=== PATIENT | female | born 1935 | race African-American/Black ===

== ENCOUNTER 2018-02-07 12:54 | Emergency (ER) | payer MEDICARE ==
--- NOTE | 2018-02-07 15:41 | RAD ---
AP VIEW OF THE CHEST: INDICATION: History of cough. COMPARISON: Prior exam dated 09/25/13 and 08/01/15. FINDINGS: COPD change and mild cardiomegaly is stable. Vascular calcifications of the aortic arch are similar. No pleural effusion, airspace consolidation, or pneumothorax is grossly evident. No acute osseous abnormality is noted. IMPRESSION: No acute abnormality. POS: [facility]
[2018-02-07] MEDS ORDERED: Ciprofloxacin HCL/Dexameth Otic Drops 7.5 ml Bottle ONE ×2 (16:04→16:05)
== END 2018-02-07 16:19 | disposition home or self-care (01) ==
LOC: ERS 12:54
DX: J06.9 Acute upper respiratory infection, unspecified (principal); H60.90 Unspecified otitis externa, unspecified ear; E03.9 Hypothyroidism, unspecified; E78.5 Hyperlipidemia, unspecified; I10 Essential (primary) hypertension; Z86.711 Personal history of pulmonary embolism
CPT/HCPCS: 71045

== ENCOUNTER 2018-04-11 10:01 | Emergency (ER) | payer MEDICARE ==
[2018-04-11] MEDS ORDERED: Acetaminophen 500 MG TAB ONE (10:24)
--- NOTE | 2018-04-11 12:15 | RAD ---
RIGHT HIP 2 VIEWS: Date: 04/01/18 PROVIDED CLINICAL HISTORY: Hip pain. FINDINGS: Comparison with 05/05/16. No evidence for fracture or other acute osseous abnormality. Concentric right hip joint space loss wi th periarticular osteophyte formation. Acetabular overcoverage, which may predispose to femoral-aceta bular impingement. Calcifications are noted overlying the pelvis that may reflect a calcified uterine fibroid. IMPRESSION: 1. No evidence for an acute osseous abnormality. 2. Degenerative changes involving the right hip as above. POS: [facility]
== END 2018-04-11 11:26 | disposition home or self-care (01) ==
LOC: ERS 10:01
DX: M25.551 Pain in right hip (principal); E78.5 Hyperlipidemia, unspecified; I10 Essential (primary) hypertension; E03.9 Hypothyroidism, unspecified; Z79.01 Long term (current) use of anticoagulants; Z79.899 Other long term (current) drug therapy

== ENCOUNTER 2018-10-09 14:49 | Outpatient (CLI) | payer MEDICARE | END 2018-10-09 14:50 | disposition home or self-care (01) | LOC: BICMAMMO 14:49 | PROVIDERS: ATTEND Internal Medicine Medical Oncology | DX: Z08 Encounter for follow-up examination after completed treatment for malignant neoplasm (principal); Z85.3 Personal history of malignant neoplasm of breast | CPT/HCPCS: 77066; G0279 ==

== ENCOUNTER → 2018-11-05 | Day surgery (SDC) | payer MEDICARE ==
--- NOTE | 2018-11-05 10:22 | MMO ---
STEREOTACTIC GUIDED BIOPSY RIGHT BREAST MICROCALCIFICATIONS SURGICAL SPECIMEN MAMMOGRAPHY RIGHT DIAGNOSTIC MAMMOGRAM POST BIOPSY: HISTORY: Abnormal mammogram. Microcalcifications. Prior breast cancer. FINDINGS: After explaining the procedure and answering all questions, the microcalcification cluster at the ret roareolar aspect of the right breast was visualized. Sterile technique, buffered local anesthesia, s tereotactic guidance, and a superior approach were used to carefully advance a 10-gauge vacuum-assist ed needle to the microcalcifications. Position was confirmed with stereotactic imaging. A total of eight 10-gauge vacuum-assisted specimens were obtained without difficulty. Surgical specimen mammography shows microcalcifications in most of the samples. Localization clip wa s placed in the biopsy bed under stereotactic guidance. Position confirmed. Needle removed. The pa tient tolerated the procedure well and was eventually dismissed in good condition. Postprocedure mammographic images show heterogeneously dense fibroglandular tissue. The cluster of m icrocalcifications at the retroareolar aspect of the right breast has been removed. Localization cli p in good position in the biopsy bed. IMPRESSION: Technically successful stereotactic-guided biopsy right breast microcalcifications. Pathology is cristiano hernández. POS: [facility]
== END ==
LOC: MAMMO 06:56
PROVIDERS: ATTEND Internal Medicine Medical Oncology
PROC: 0HBT3ZX Excision of Right Breast, Percutaneous Approach, Diagnostic (ICD-10-PCS; principal; 2018-11-05)
DX: D05.11 Intraductal carcinoma in situ of right breast (principal); Z79.01 Long term (current) use of anticoagulants; Z79.811 Long term (current) use of aromatase inhibitors; Z79.899 Other long term (current) drug therapy
CPT/HCPCS: 19081; 76098; 88305; 88341; 88342

== ENCOUNTER 2018-11-24 11:08 | Outpatient (CLI) | payer MEDICARE ==
[2018-11-24 13:44] LABS: Eosinophils 7 % (0-10); Hemoglobin 13.3 g/dL (12.0-16.0); Lymphocytes 32 % (21-51); MDiff Complete? YES; Mean Corpuscular Hemoglobin 26.1 pg (27.0-31.0); Mean Corpuscular Volume 84.3 fL (78.0-98.0); Mean Platelet Volume 9.5 fL (7.4-10.4); Monocytes 3 % (0-10); Neutrophil 57 % (42-75); Platelet Count 160 thou/uL (130-400); RBC Distribution Width 15.1 % (11.5-14.5); RBC Morphology Normal; Reactive Lymphocytes 1 % (0-10); Red Blood Cell (RBC) Count 5.11 mill/uL (4.20-5.40); White Blood Cell (WBC) Count 4.7 thou/uL (4.8-10.8)
== END 2018-11-24 11:09 | disposition home or self-care (01) ==
LOC: LABBT 11:08
PROVIDERS: ATTEND Surgery
DX: Z01.818 Encounter for other preprocedural examination (principal); D05.11 Intraductal carcinoma in situ of right breast
CPT/HCPCS: 85025; 93005; 93010

== ENCOUNTER 2018-12-04 06:57 | Day surgery (SDC) | payer MEDICARE ==
[2018-11-24 11:38] VITALS: BMI 22.2
[2018-12-04] MEDS ORDERED: Lidocaine 2% w/Epinephrine 1:200K 20 ML VIAL ONE (08:58)
[2018-12-04] MEDS ORDERED: Bupivacaine HCl 0.5%/Epinephrine 1:200,000/PF 30 ml Vial ONE ×2 (08:58→10:24)
[2018-12-04 08:59] LABS: ALT (SGPT) 9 U/L (8-55); AST (SGOT) 12 U/L (5-34); Albumin 3.8 g/dL (3.4-4.8); Alkaline Phosphatase 48 U/L (40-150); Anion Gap 11 mmol/L (10-20); BUN (Urea Nitrogen) 11 mg/dL (9.8-20.1); Bilirubin, Direct 0.2 mg/dL (0.1-0.3); Bilirubin, Total 0.4 mg/dL (0.2-1.2); Calc. Creatinine Clearance 52 mL/min (70-130); Calcium 9.2 mg/dL (7.8-10.44); Carbon Dioxide 26 mmol/L (23-31); Chloride 109 mmol/L (98-107); Estimated GFR-MDRD 79; Globulin 2.9 g/dL (2.4-3.5); Glucose 81 mg/dL (83-110); Potassium 3.6 mmol/L (3.5-5.1); Protein, Total 6.7 g/dL (6.0-8.3); Sodium 142 mmol/L (136-145)
[2018-12-04] MEDS ORDERED: Lidocaine 2% PF 5 ML VIAL ONE ×2 (09:00→10:24)
[2018-12-04] MEDS ORDERED: Midazolam HCl 2 mg/2 ml Vial ONE (10:39)
[2018-12-04] MEDS ORDERED: Fentanyl 100 MCG/2 ML VIAL ONE (10:39)
--- NOTE | 2018-12-04 12:40 | OP ---
DATE OF PROCEDURE: 12/04/2018 PREOPERATIVE DIAGNOSIS: Right breast cancer. PROCEDURE PERFORMED: Right needle localization lumpectomy, sentinel lymph node biopsy. INDICATIONS: An 83-year-old female, had abnormal mammogram, core biopsy was positive for infiltrating ductal carcinoma. FINDINGS: Successful removal of the tumor by specimen mammogram as a single sentinel node found. It was negative by touch prep. DESCRIPTION OF PROCEDURE: After informed consent was obtained, the patient underwent an injection of radionucleotide in the mammography suite as well as placement of a needle localization wire. She was placed under general endotracheal anesthesia. Her right breast was prepped and draped in usual fashion. Lymphazurin was infiltrated subareolar, 3 mL and massaged. Her right breast was prepped and draped in usual fashion. The Neoprobe was borrowed from another hospital, attempted a baseline, it was zero. We had the civil engineering look at it. They could not fix it, so we did not have a Neoprobe. I did a transverse axillary incision. Subcu divided sharply. I was able to locate blue dye and lymphatic, traced the lymphatic to a sentinel node. The sentinel node was excised. Efferent and afferent lymphatics ligated with 3-0 Vicryl ties. Palpation revealed no other nodes. On visualization, no other nodes. While waiting on the results of it, a curvilinear circumareolar incision was performed. Subcu divided sharply. The needle was brought out through the incision and a core breast tissue excised around the needle. This specimen was sent to mammography revealing it did contain the clip, wire, and tumor. Sent to pathology for further analysis. Hemostasis achieved. The wound was thoroughly irrigated. Subcu were approximated with interrupted 3-0 Vicryl. Skin closed with a running subcuticular 4-0 Rapide. By now, the lymph node came back negative. Hemostasis assured. Subcu reapproximated with interrupted 3-0 Vicryl and skin closed with a running subcuticular 4-0 Rapide. Steri-Strips applied. Sterile bandage applied. The patient tolerated the procedure well, transferred to Recovery in good condition. Sponge and needle count verified correct x2. Job ID: [id number]
--- NOTE | 2018-12-04 13:13 | MMO ---
MAMMOGRAPHIC GUIDED NEEDLE AND WIRE LOCALIZATION OF BIOPSY MARKER CLIP RIGHT BREAST RETROAREOLAR LUIS ENRIQUE ON: HISTORY: Prior stereotactic-guided breast biopsy demonstrated DCIS. The patient has a history of prior right- sided breast cancer. TECHNIQUE: After informed consent was obtained, the biopsy marker clip was localized in CC projection with grid localizer in place. An area was marked and then meticulously prepped and prepped in usual fashion. The skin and subcutaneous tissues were infiltrated with buffered 1% Lidocaine for local anesthesia. A 5 cm length [place] Localization needle and wire were placed. A CC projection followed by lateral me dial projection was performed. The needle was noted to traverse the region of the biopsy marker clip . The needle was slightly withdrawn and the localization wire was deployed. A final lateral medial projection left breast was performed. A dry sterile dressing was placed. The patient tolerated the procedure well and without immediate complication. IMPRESSION: Technically successful needle and wire localization of biopsy marker clip retroareolar region right b reast. The patient was transported to the operating room for lumpectomy. POS: [facility]
--- NOTE | 2018-12-04 14:19 | MMO ---
SURGICAL SPECIMEN RIGHT BREAST: 12/04/2018 HISTORY: Right breast cancer. Post needle and wire localization of biopsy marker clip, right breast. FINDINGS/IMPRESSION: A single specimen mammogram is submitted for interpretation. A [place] localization wire is seen immed iately adjacent to the biopsy marker clip within the specimen mammogram. These findings were discuss ed with Dr. Knapp in the operating room at the time the specimen was received. POS: [facility]
[2018-12-04] MEDS ORDERED: PROPOFOL 200 MG/20 ML VIAL ONE (14:45)
[2018-12-04] MEDS ORDERED: PHENYLEPHRINE-NS 100 MCG/ML 10 ML SYRINGE ONE (14:45)
[2018-12-04] MEDS ORDERED: Glycopyrrolate 0.2 MG/ML 5 ML SYRINGE ONE (14:45)
[2018-12-04] MEDS ORDERED: Ondansetron PF 4 MG/2 ML Vial ONE (14:45)
[2018-12-04] MEDS ORDERED: ePHEDrine 50 MG/ML VIAL ONE (14:45)
[2018-12-04] MEDS ORDERED: Dexamethasone 20 MG/5 ML VIAL ONE (14:45)
[2018-12-04] MEDS ORDERED: Lidocaine 1% PF 5 ML VIAL ONE (14:45)
== END 2018-12-04 14:19 | disposition home or self-care (01) ==
LOC: SDC 06:57
PROVIDERS: ATTEND Surgery
PROC: 0HBT0ZZ Excision of Right Breast, Open Approach (ICD-10-PCS; principal; 2018-12-04)
PROC: 07B50ZX Excision of Right Axillary Lymphatic, Open Approach, Diagnostic (ICD-10-PCS; 2018-12-04)
DX: D05.11 Intraductal carcinoma in situ of right breast (principal); E78.00 Pure hypercholesterolemia, unspecified; E07.9 Disorder of thyroid, unspecified; I10 Essential (primary) hypertension; Z86.711 Personal history of pulmonary embolism; Z79.01 Long term (current) use of anticoagulants; Z79.82 Long term (current) use of aspirin; Z79.899 Other long term (current) drug therapy
CPT/HCPCS: 19281; 19301; 38525; 38900; 76098; 80053; 80076; Q9968; 36415; 88307; 88333; 88341; 88342; J0670; J1100; J2001; J2250; J2405; J2704; J3010; J3490

== ENCOUNTER 2019-03-02 09:31 | Outpatient (CLI) | payer MEDICARE ==
--- NOTE | 2019-03-02 12:08 | BD ---
Exam: DEXA Bone Density History: Osteopenia. Comparison: 05-06-17 FINDINGS: Lumbar Spine: BMD (g/cm2) L1 0.978 T-Score: -0.1 L2 1.135 T-Score: 1.0 L3 1.110 T-Score: 0.2 L4 1.041 T-Score: -0.2 L1-L4 1.066 T-Score: 0.2 Within normal limits with no increased risk for fracture, little change from prior 05-06-17 study at [facility] the overall T-Score was 0.1 Femoral Neck: 0.698 T-Score: -1.4 Total Femur: 0.796 T-Score: -1.2 Evidence for osteopenia with increased risk for fracture. Bone mineral density has decreased somewhat from 05-06-17 at which time the T-Score was -1.0. TRAC SCORE: Major osteoporotic fracture of 17%. Hip fracture 3.9%. POS: [facility]
== END 2019-03-02 09:32 | disposition home or self-care (01) ==
LOC: BICMAMMO 09:31
PROVIDERS: ATTEND Internal Medicine Medical Oncology
DX: M85.859 Other specified disorders of bone density and structure, unspecified thigh (principal); C50.919 Malignant neoplasm of unspecified site of unspecified female breast
CPT/HCPCS: 77080

== ENCOUNTER 2019-12-22 08:50 | Outpatient (CLI) | payer MEDICARE ==
--- NOTE | 2019-12-22 09:58 | MMO ---
Bilateral MAMMO Bilat Diag DDI+SHERIN. CLINICAL HISTORY: Patient is 84 years old and is seen for diagnostic exam. The patient has no family history of breast cancer. The patient has a history of Excisional biopsy procedure revealed ductal carcinoma in situ. in the right breast. The patient has a history of right Stereotatic Biopsy in October, - dcis and right Lumpectomy in November, - malignant. VIEWS: The views performed were: bilateral craniocaudal with tomosynthesis; bilateral mediolateral oblique with tomosynthesis; and bilateral mediolateral with tomosynthesis. FILMS COMPARED: The present examination has been compared to prior imaging studies performed at [facility] on 02/13/2016, 05/06/2017 and 10/09/2018. This study has been interpreted with the assistance of computer-aided detection. MAMMOGRAM FINDINGS: There are scattered fibroglandular densities. Finding 1: There are fine pleomorphic calcifications with grouped or clustered distribution seen in the right breast at 10 o'clock. Finding 2: There are fine pleomorphic calcifications with grouped or clustered distribution seen in the sub-areolar region of the right breast. The larger group appears along the lateral aspect of the lumpectomy site and the subareolar group appears along the anterior aspect of the lumpectomy site. In the left breast, there are no suspicious masses, calcifications or areas of architectural distortion. IMPRESSION: FINDING 1: FINE PLEOMORPHIC CALCIFICATIONS IN THE RIGHT BREAST AT 10 O'CLOCK ARE SUSPICIOUS. A STEREOTACTIC BREAST BIOPSY IS RECOMMENDED. FINDING 2: FINE PLEOMORPHIC CALCIFICATIONS IN THE SUB-AREOLAR REGION OF THE RIGHT BREAST ARE SUSPICIOUS. A STEREOTACTIC BREAST BIOPSY IS RECOMMENDED. THE RESULTS OF THIS EXAM WERE SENT TO THE PATIENT. ACR BI-RADS Category 4 - Suspicious abnormality - biopsy should be considered MAMMOGRAPHY NOTE: 1. A negative mammogram report should not delay a biopsy if a dominant of clinically suspicious mass is present. 2. Approximately 10% to 15% of breast cancers are not detected by mammography. 3. Adenosis and dense breasts may obscure an underlying neoplasm. Reported by: ALEX INTERIANO MD Electonically Signed: [id number]
== END 2019-12-22 08:51 | disposition home or self-care (01) ==
LOC: BICMAMMO 08:50
PROVIDERS: ATTEND Surgery
DX: D05.10 Intraductal carcinoma in situ of unspecified breast (principal); R92.1 Mammographic calcification found on diagnostic imaging of breast
CPT/HCPCS: 77066; G0279

== ENCOUNTER → 2019-12-28 | Day surgery (SDC) | payer MEDICARE ==
--- NOTE | 2019-12-28 09:53 | MMO ---
PROCEDURE: Stereotactic guided biopsy of 2 separate clusters of microcalcifications right breast Right breast biopsy marker clip placement PROVIDED CLINICAL HISTORY: Patient has prior history of right breast cancer. Patient has 2 separate clustered areas of microcalc ifications in the right breast with largest clustered microcalcifications seen at the 10:00 position right breast and second cluster in the subareolar region of the right breast. COMPARISON: Mammograms on 12/22/2019 TECHNIQUE: After informed consent was obtained, the patient was placed on the stereotactic biopsy table in the p azar position. Largest cluster of microcalcifications 10:00 position right breast was localized utilizing stereotactic guidance. An area was prepped in usual fashion. Skin and subcutaneous tissues were infiltrated with buffered 1% lidocaine with epinephrine for local anesthesia. Small skin incision was made. A 10-gauge stereotactic guided biopsy needle was advanced by opposing images. Need le was then further advanced and final position was again confirmed with imaging. A total of six 10-gauge core needle biopsy specimens were obtained. Specimen mammogram demonstrated microcalcificati ons in the specimen. As result, a biopsy marker clip was placed. Hemostasis was achieved with direct pressure, and a dry sterile dressing was placed. Microcalcifications in the subareolar region right breast were then localized, and the area was metic ulously prepped in usual sterile fashion. Skin and subcutaneous tissues were infiltrated with buffered 1% lidocaine with epinephrine for local anesthesia. A small skin incision was made. Biopsy n eedle was advanced and positioning was confirmed with stereotactic imaging. The needle was then further advanced and again position was confirmed with additional images. A total of three 10-gauge c ore needle biopsy specimens were obtained. However, no significant tissue was obtained at this time. As a result, the needle was then slightly advanced and 3 additional specimens were obtained. Sp ecimen mammogram was performed demonstrating microcalcifications in the specimen. Biopsy marker clip was deployed at site of biopsy. Needle was removed, and hemostasis was achieved with direct pres sure. The patient tolerated the procedure well and without immediate complication. IMPRESSION: 1. Technically successful stereotactic guided biopsy of clustered microcalcifications at the 10:00 po sition right breast and in the subareolar region right breast. 2. Successful biopsy clip deployment at sites of biopsy in the right breast.
--- NOTE | 2019-12-28 09:56 | MMO ---
EXAM: MAMMO Surgial Specimen PROVIDED CLINICAL HISTORY: Biopsy of 2 separate clusters of microcalcifications in the right breast at the 10:00 position and in the retroareolar region. COMPARISON: Stereotactic guided breast biopsy images obtained on today's date as well as prior mammogram on 2019 FINDINGS\IMPRESSION: Specimen mammogram right breast from stereotactic biopsy 10:00 position demonstrates multiple microca lcifications within the provided specimen. Specimen mammogram from stereotactic biopsy retroareolar region right breast demonstrates a few scatt ered microcalcifications in the provided specimen
--- NOTE | 2019-12-28 10:04 | MMO ---
EXAM: MAMMO Unilat Diag DDI RT PROVIDED CLINICAL HISTORY: Post stereotactic guided breast biopsy and biopsy marker clip placements at 2 separate locations with in the right breast at the 10:00 position in the retroareolar region right breast. COMPARISON: Mammograms on 12/22/2019 FINDINGS: There is a biopsy marker clip now present in the retroareolar right breast, and the previously seen t iny grouping of microcalcifications is no longer visualized compatible with interval biopsy. A biopsy marker clip is also seen in the upper outer right breast with decrease in number of microcal cifications in the right breast, but a cluster of microcalcifications do persist. The biopsy marker clip is located inferior to the site of biopsy with clustered microcalcifications superior to the lev el of the biopsy marker clip. Biopsy marker clip is also located slightly anterior to region of microcalcifications. IMPRESSION: Post biopsy mammogram demonstrates 2 new biopsy marker clips in the right breast as above. Pathology is currently pending.
== END ==
LOC: MAMMO 07:01
PROVIDERS: ATTEND Surgery
PROC: 0H9T3ZX Drainage of Right Breast, Percutaneous Approach, Diagnostic (ICD-10-PCS; principal; 2019-12-28)
DX: D05.11 Intraductal carcinoma in situ of right breast (principal); N64.1 Fat necrosis of breast; R92.0 Mammographic microcalcification found on diagnostic imaging of breast; Z85.3 Personal history of malignant neoplasm of breast
CPT/HCPCS: 19081; 19082; 76098; 88305; 88341; 88342

== ENCOUNTER 2020-02-04 07:12 | Outpatient (CLI) | payer MEDICARE, OTHER ==
[2020-02-04 15:22] LABS: #Eosinphils 0.2 thou/uL (0.0-0.7); #Lymphocytes 1.6 thou/uL (1.20-3.40); #Monocytes 0.4 thou/uL (0.11-0.59); #Neutrophils 3.3 thou/uL (1.40-6.50); %Basophils 0.7 % (0.0-1.0); %Lymphocytes 28.9 % (21.0-51.0); %Monocytes 6.7 % (0.0-10.0); %Neutrophils 59.7 % (42.0-75.0); Hemoglobin 13.3 g/dL (12.0-16.0); Mean Corpuscular HGB CONC 31.4 g/dL (32.0-36.0); Mean Corpuscular Hemoglobin 26.5 pg (27.0-31.0); Mean Corpuscular Volume 84.2 fL (78.0-98.0); Mean Platelet Volume 8.4 fL (7.4-10.4); Platelet Count 221 thou/uL (130-400); RBC Distribution Width 14.8 % (11.5-14.5); Red Blood Cell (RBC) Count 5.04 mill/uL (4.20-5.40); White Blood Cell (WBC) Count 5.5 thou/uL (4.8-10.8)
[2020-02-04 15:45] LABS: ALT (SGPT) Less than 7 U/L (8-55); AST (SGOT) 17 U/L (5-34); Albumin 4.2 g/dL (3.4-4.8); Alkaline Phosphatase 77 U/L (40-110); Anion Gap 15 mmol/L (10-20); BUN (Urea Nitrogen) 10 mg/dL (9.8-20.1); Bilirubin, Total 0.4 mg/dL (0.2-1.2); Calc. Creatinine Clearance 0 mL/min (70-130); Calcium 9.6 mg/dL (7.8-10.44); Carbon Dioxide 23 mmol/L (23-31); Chloride 107 mmol/L (98-107); Estimated GFR-MDRD 66; Globulin 3.3 g/dL (2.4-3.5); Glucose 76 mg/dL (83-110); Potassium 3.8 mmol/L (3.5-5.1); Protein, Total 7.5 g/dL (6.0-8.3); Sodium 141 mmol/L (136-145)
[2020-02-05 17:09] LABS: SARS-CoV-2 MS2 Positive; SARS-CoV-2 N Gene Negative; SARS-CoV-2 S Gene Negative; SARS-CoV-2 orf1ab Negative
== END 2020-02-04 07:13 | disposition home or self-care (01) ==
LOC: LABBT 07:12
PROVIDERS: ATTEND Surgery
DX: Z01.818 Encounter for other preprocedural examination (principal); Z11.59 Encounter for screening for other viral diseases; D05.11 Intraductal carcinoma in situ of right breast
CPT/HCPCS: 80053; 85025; 93005; U0003; 87635; 93010

== ENCOUNTER 2020-02-04 14:00 | Inpatient (IN) | payer MEDICARE ==
[2020-02-04 14:12] VITALS: BMI 22.8
[2020-02-08] MEDS ORDERED: PROPOFOL 200 MG/20 ML VIAL ONE (11:27)
[2020-02-08] MEDS ORDERED: Dexamethasone 20 MG/5 ML VIAL ONE (11:27)
[2020-02-08] MEDS ORDERED: Lidocaine 1% PF 5 ML VIAL ONE (11:27)
[2020-02-08] MEDS ORDERED: Glycopyrrolate 0.2 MG/ML 5 ML SYRINGE ONE (11:27)
[2020-02-08] MEDS ORDERED: Rocuronium Bromide 10 MG/ML (10ML VIAL) ONE (11:27)
[2020-02-08] MEDS ORDERED: Ondansetron PF 4 MG/2 ML Vial ONE (11:27)
[2020-02-08] MEDS ORDERED: Fentanyl 100 MCG/2 ML VIAL ONE (11:29)
[2020-02-08] MEDS ORDERED: Lidocaine 1% w/Epinephrine 1:100K 20 ML VIAL ONE (11:36)
[2020-02-08] MEDS ORDERED: Bupivacaine PF 0.5% 30 ML VIAL ONE (11:36)
[2020-02-08] MEDS ORDERED: HYDROcodone/Acetaminophen 7.5/325 mg Tablet PO PRN ×2 (13:15)
[2020-02-08] MEDS ORDERED: Morphine 4 MG/ML VIAL SLOW IVP PRN (13:15)
[2020-02-08] MEDS ORDERED: Dextrose 50% Abboject 50 ML SYRINGE SLOW IVP PRN (13:15)
[2020-02-08] MEDS ORDERED: hydrALAZINE 20 MG/ML VIAL SLOW IVP PRN (13:15)
[2020-02-08] MEDS ORDERED: Ondansetron PF 4 MG/2 ML Vial IVP PRN (13:15)
[2020-02-08] MEDS ORDERED: Promethazine HCl 25 MG/ML VIAL IM PRN ×2 (13:15→13:36)
[2020-02-08] MEDS ORDERED: Morphine 2 MG/ML SYRINGE SLOW IVP PRN (13:15)
[2020-02-08] MEDS ORDERED: Dextrose 5% in Water 1,000 ML IV PRN (13:15)
[2020-02-08] MEDS ORDERED: PACU-Morphine 4MG/ML VIAL SLOW IVP PRN (13:36)
[2020-02-08] MEDS ORDERED: Promethazine HCl 25 MG/ML VIAL SLOW IVP PRN (13:36)
[2020-02-08] MEDS: D5 1/2 NS w/20 mEq KCL 1,000 ML IV SCH (16:53)
[2020-02-08] MEDS: Carvedilol 6.25 MG TAB PO SCH (16:53)
[2020-02-08] MEDS: Docusate 100 MG CAP PO SCH (19:57)
[2020-02-08] MEDS: Famotidine 20 MG TAB PO SCH (19:57)
[2020-02-09] MEDS: D5 1/2 NS w/20 mEq KCL 1,000 ML IV SCH (05:01)
[2020-02-09 05:37] LABS: #Monocytes 0.5 thou/uL (0.11-0.59); %Basophils 0.1 % (0.0-1.0); %Eosinophils 0.1 % (0.0-10.0); %Monocytes 4.8 % (0.0-10.0); Hemoglobin 12.3 g/dL (12.0-16.0); Mean Corpuscular HGB CONC 31.8 g/dL (32.0-36.0); Mean Corpuscular Hemoglobin 26.6 pg (27.0-31.0); Mean Corpuscular Volume 83.5 fL (78.0-98.0); Mean Platelet Volume 8.2 fL (7.4-10.4); Platelet Count 208 thou/uL (130-400); RBC Distribution Width 14.8 % (11.5-14.5); Red Blood Cell (RBC) Count 4.63 mill/uL (4.20-5.40); White Blood Cell (WBC) Count 9.4 thou/uL (4.8-10.8)
[2020-02-09] MEDS ORDERED: Levothyroxine Sodium 50 MCG TAB PO SCH (06:00)
[2020-02-09 06:03] LABS: Anion Gap 12 mmol/L (10-20); BUN (Urea Nitrogen) 8 mg/dL (9.8-20.1); Calc. Creatinine Clearance 50 mL/min (70-130); Calcium 8.6 mg/dL (7.8-10.44); Carbon Dioxide 22 mmol/L (23-31); Chloride 108 mmol/L (98-107); Estimated GFR-MDRD 74; Glucose 121 mg/dL (83-110); Potassium 4.2 mmol/L (3.5-5.1); Sodium 138 mmol/L (136-145)
--- NOTE | 2020-02-09 06:07 | OP ---
DATE OF PROCEDURE: 02/08/2020 PREOPERATIVE DIAGNOSIS: Recurrent ductal carcinoma in situ, right breast. PROCEDURE PERFORMED: Right total mastectomy. INDICATIONS: An 84-year-old female, who had a previous lumpectomy and sentinel node biopsy about a year ago, it turned out to be DCIS, who on followup mammogram was found to have another area. Core biopsy was positive for DCIS and it was rather extensive findings. No palpable mass. DESCRIPTION OF PROCEDURE: After informed consent was obtained, the patient was taken to the operating room, given general endotracheal anesthesia, placed in the supine position. Right breast was prepped and draped in usual fashion. An elliptical incision was performed, subcu divided sharply. The plane was developed between breast tissue and subcutaneous tissue superiorly to the level of the clavicle, inferior to the rectus, posterior to the latissimus, medially to the sternum, taken off the pectoralis to include the fascia. All this was done utilizing a PlasmaBlade. Hemostasis was achieved with the PlasmaBlade. The wound was thoroughly irrigated. The specimen marked with a stitch superior. Two drains were placed. The subcu was reapproximated with interrupted 3-0 Vicryl. Skin closed with a running subcuticular 4-0 Rapide. Steri-Strips applied. Sterile bandage applied. The patient tolerated the procedure well, transferred to Recovery in good condition. Sponge and needle count verified correct x2. Job ID: [id number]
[2020-02-09] MEDS: Docusate 100 MG CAP PO SCH (08:25)
[2020-02-09] MEDS: Famotidine 20 MG TAB PO SCH (08:25)
[2020-02-09] MEDS: Carvedilol 6.25 MG TAB PO SCH (08:26)
[2020-02-09] MEDS ORDERED: Enoxaparin Sodium 40 MG/0.4 ML SYRINGE SC SCH (09:00)
[2020-02-09] MEDS ORDERED: Amlodipine 5 mg/Benazepril 20 mg CAP PO SCH (09:00)
[2020-02-09 11:54] VITALS: BP 110/60; TEMP 98.5
--- NOTE | 2020-02-09 13:48 | DIS ---
DATE OF ADMISSION: 02/08/2020 DATE OF DISCHARGE: 02/09/2020 DISCHARGE DIAGNOSIS: Multifocal ductal carcinoma in situ, recurrent, right breast. PROCEDURES DURING ADMISSION: Right total mastectomy. HOSPITAL COURSE: The patient was admitted, taken to the operating room, where she underwent a right total mastectomy. Postoperatively, she has done well. Her pain is minimal. Drain output is fine. Vital signs are good. She is discharged home on hydrocodone. She had been taught drain care. She will follow up with me early next week in the office. Job ID: [id number]
== END 2020-02-09 11:55 | disposition home or self-care (01) | DRG 583 ==
LOC: SURG A 02-08 09:24
PROVIDERS: ADMIT Surgery; ATTEND Surgery
PROC: 0HTT0ZZ Resection of Right Breast, Open Approach (ICD-10-PCS; principal; 2020-02-08)
DX: D05.11 Intraductal carcinoma in situ of right breast (principal); I10 Essential (primary) hypertension; E03.9 Hypothyroidism, unspecified; E78.5 Hyperlipidemia, unspecified; Z79.899 Other long term (current) drug therapy; Z79.890 Hormone replacement therapy; Z79.82 Long term (current) use of aspirin
CPT/HCPCS: 36415; 80048; 85025; J0690; J1100; J1650; J2001; J2405; J2704; J3010; J3480; S0020

== ENCOUNTER 2020-02-24 12:30 | Outpatient (CLI) | payer MEDICARE ==
--- NOTE | 2020-02-24 15:36 | PET ---
Radionucleotide PET scan with CT attenuation correction HISTORY: Right breast cancer. Restaging. COMPARISON: 10/12/2013. FINDINGS: Physiologic uptake of radiotracer throughout the enteric system and along each urinary trac t. Postoperative changes of the right breast are apparent. A 1.7 cm prepectoral lymph node on the right shows max SUV 1.8. A 1.7 cm right axillary lymph node shows max SUV 2.1. Extensive hypermetabolic foci are present throughout the osseous structures. The areas of most conspi cuous uptake, along with Max SUV, are as follows: Left clavicular head 4.4 Manubrium 4.0 L3 vertebral body 4.4 L4 vertebral body 4.8 L5 vertebral body 4.4 Sacrum right side 5.3 Sacrum left side 7.1 Right iliac bone 6.8 Left iliac bone 4.7 Right acetabulum 7.6 Left acetabulum 5.8 Left ischium 6.3 Right proximal femur 3.8 Left proximal femur 5.[address] attenuation correction images show lobular cysts within the liver, measuring up to 5 .4 cm at the posterior segment right liver lobe. There are postoperative changes of the stomach. Focal area of scarring and dystrophic calcification at the posterior aspect of the superior pole left kidney. Small left renal cyst also evident. Dystrophic calcification is associated with fibroid involvement of the uterus. Non-hypermetabolic oval subcutaneous cystic lesion is present at the posterior aspect of the right sh oulder. IMPRESSION : Extensive widespread osseous metastatic disease as detailed above. Postoperative changes right breast. The right prepectoral and axillary lymph nodes remain sub-hyperme tabolic, possibly reactive rather than neoplastic. Fibroid involvement of the uterus. Other incidental-type findings as detailed above.
== END 2020-02-24 12:31 | disposition home or self-care (01) ==
LOC: PET 12:30
PROVIDERS: ATTEND Internal Medicine Medical Oncology
DX: C50.911 Malignant neoplasm of unspecified site of right female breast (principal); C79.51 Secondary malignant neoplasm of bone; Z98.890 Other specified postprocedural states; D25.9 Leiomyoma of uterus, unspecified
CPT/HCPCS: 78815; A9552

== ENCOUNTER 2020-03-20 08:19 | Day surgery (SDC) | payer MEDICARE ==
[2020-03-17 14:15] VITALS: BMI 22.1
[2020-03-20] MEDS ORDERED: Midazolam HCl 2 mg/2 ml Vial ONE (08:32)
[2020-03-20] MEDS ORDERED: Sodium Bicarbonate 2.5 MEQ/5 ML VIAL ONE (08:32)
[2020-03-20] MEDS ORDERED: Fentanyl 100 MCG/2 ML VIAL ONE (08:32)
[2020-03-20 08:41] LABS: #Eosinphils 0.2 thou/uL (0.0-0.7); #Lymphocytes 1.8 thou/uL (1.20-3.40); #Monocytes 0.4 thou/uL (0.11-0.59); #Neutrophils 3.5 thou/uL (1.40-6.50); %Basophils 0.4 % (0.0-1.0); %Eosinophils 3.9 % (0.0-10.0); %Lymphocytes 31.1 % (21.0-51.0); %Monocytes 6.2 % (0.0-10.0); %Neutrophils 58.5 % (42.0-75.0); Hemoglobin 13.1 g/dL (12.0-16.0); Mean Corpuscular HGB CONC 32.2 g/dL (32.0-36.0); Mean Corpuscular Hemoglobin 26.8 pg (27.0-31.0); Mean Corpuscular Volume 83.2 fL (78.0-98.0); Mean Platelet Volume 9.2 fL (7.4-10.4); Platelet Count 255 thou/uL (130-400); RBC Distribution Width 15.5 % (11.5-14.5); Red Blood Cell (RBC) Count 4.89 mill/uL (4.20-5.40); White Blood Cell (WBC) Count 5.9 thou/uL (4.8-10.8)
[2020-03-20 09:35] LABS: INR-International Normal Ratio 1.1; Prothrombin Time 13.8 sec (12.0-14.7)
--- NOTE | 2020-03-20 11:29 | CT ---
CT-guided left iliac bone metastatic lesion biopsy INDICATION: Diffuse osseous metastatic disease. Hypermetabolic lesions seen within the left posterior ilium on the comparison PET/CT dated 02/24/2020 TECHNIQUE: Informed consent was obtained. Preprocedure CT images were performed for guidance purposes only. Site overlying the left posterior ilial lesion was marked. The site was prepped and draped in the usual sterile fashion. Buffered 1% lidocaine was administered overlying subcutaneous tissues a nd periosteum of the posterior left ilium. The patient underwent conscious sedation under guidance of the radiology nurse receiving 0.5 mg of IV Versed and 25 mcg of IV fentanyl. Please see her record s for further details. Under CT guidance, the Arrow On-Control biopsy needle was guided down to the level of the lesion. Pressures was obtained through the cortex. Following this a 0.5 cm sample was ob tained of the lytic lesion in question. Pathology was on-site to verify adequacy of tissue sampling. At the request of the pathology department, an additional sample was obtained utilizing the Arrow On Control biopsy needle. An additional 1 cm sample was obtained of the lesion. Pressure was held at the biopsy site till hemostasis was obtained. Pressure bandage was placed over the biopsy sit e. Patient tolerated the biopsy without difficulty. IMPRESSION: Successful CT-guided left iliac bone metastatic lesion biopsy.
[2020-03-20 12:13] VITALS: BP 134/65; TEMP 97.6
--- NOTE | 2020-03-21 14:16 | CT ---
CT-guided left iliac bone metastatic lesion biopsy INDICATION: Diffuse osseous metastatic disease. Hypermetabolic lesions seen within the left posterior ilium on the comparison PET/CT dated 02/24/2020 TECHNIQUE: Informed consent was obtained. Preprocedure CT images were performed for guidance purposes only. Site overlying the left posterior ilial lesion was marked. The site was prepped and draped in the usual sterile fashion. Buffered 1% lidocaine was administered overlying subcutaneous tissues a nd periosteum of the posterior left ilium. The patient underwent conscious sedation under guidance of the radiology nurse receiving 0.5 mg of IV Versed and 25 mcg of IV fentanyl. Please see her record s for further details. Under CT guidance, the Arrow On-Control biopsy needle was guided down to the level of the lesion. Pressures was obtained through the cortex. Following this a 0.5 cm sample was ob tained of the lytic lesion in question. Pathology was on-site to verify adequacy of tissue sampling. At the request of the pathology department, an additional sample was obtained utilizing the Arrow On Control biopsy needle. An additional 1 cm sample was obtained of the lesion. Pressure was held at the biopsy site till hemostasis was obtained. Pressure bandage was placed over the biopsy sit e. Patient tolerated the biopsy without difficulty. IMPRESSION: Successful CT-guided left iliac bone metastatic lesion biopsy. Transcribed Date/Time: 03/21/2020 2:15 PM
== END 2020-03-20 12:30 | disposition home or self-care (01) ==
LOC: SDC 08:19
PROVIDERS: ATTEND Internal Medicine Medical Oncology
PROC: 0QB33ZX Excision of Left Pelvic Bone, Percutaneous Approach, Diagnostic (ICD-10-PCS; principal; 2020-03-20)
DX: C50.911 Malignant neoplasm of unspecified site of right female breast (principal); C79.51 Secondary malignant neoplasm of bone; I10 Essential (primary) hypertension; E78.00 Pure hypercholesterolemia, unspecified; E03.9 Hypothyroidism, unspecified; Z17.1 Estrogen receptor negative status [ER-]; Z79.82 Long term (current) use of aspirin; Z79.899 Other long term (current) drug therapy
CPT/HCPCS: 20225; 36415; 77012; 85025; 85610; 85730; 88307; 88333; 88341; 88342; J2250; J3010

== ENCOUNTER 2020-06-02 09:24 | Day surgery (SDC) | payer MEDICARE ==
[~2020-06-02 09:24] MED LIST: ADMIXTURE FEE CHEMO IVPB SCH; ATEZOLIZUMAB 840 MG in Sodium Chloride 0.9% 250 ML 250 ML IVPB SCH; Ondansetron 2MG/ML MDV 10 MG in Sodium Chloride 0.9% 50 ML IVPB SCH; PACLITAXEL PROTEIN BOUND IVPB SCH
[2020-06-02 11:43] VITALS: BP 139/63; TEMP 98.3
== END 2020-06-02 13:16 | disposition home or self-care (01) ==
LOC: ONC/OP 09:24
PROVIDERS: ATTEND Internal Medicine Medical Oncology
DX: Z51.11 Encounter for antineoplastic chemotherapy (principal); C50.911 Malignant neoplasm of unspecified site of right female breast; Z17.1 Estrogen receptor negative status [ER-]
CPT/HCPCS: 96375; 96413; 96417; J2405

== ENCOUNTER 2020-06-16 09:20 | Day surgery (SDC) | payer MEDICARE ==
[2020-06-16 09:33] VITALS: BP 116/56; TEMP 97.2
== END 2020-06-16 12:31 | disposition home or self-care (01) ==
LOC: ONC/OP 09:20
PROVIDERS: ATTEND Internal Medicine Medical Oncology
DX: Z51.12 Encounter for antineoplastic immunotherapy (principal); C50.911 Malignant neoplasm of unspecified site of right female breast; Z17.1 Estrogen receptor negative status [ER-]
CPT/HCPCS: 36415; 80053; 82248; 83615; 84100; 84550; 96375; 96413; 96417; J2405

== ENCOUNTER 2020-06-30 09:39 | Day surgery (SDC) | payer MEDICARE ==
[2020-06-30] MEDS ORDERED: Sodium Chloride 0.9% 20 ML ONE (09:49)
[2020-06-30 09:56] VITALS: BP 142/66; TEMP 98.2
== END 2020-06-30 11:43 | disposition home or self-care (01) ==
LOC: ONC/OP 09:39
PROVIDERS: ATTEND Internal Medicine Medical Oncology
DX: Z51.11 Encounter for antineoplastic chemotherapy (principal); C50.911 Malignant neoplasm of unspecified site of right female breast; Z17.1 Estrogen receptor negative status [ER-]
CPT/HCPCS: 36415; 80053; 82248; 83615; 84100; 84436; 84443; 84550; 96375; 96413; J2405

== ENCOUNTER 2020-07-10 09:34 | Day surgery (SDC) | payer MEDICARE ==
[~2020-07-10 09:34] MED LIST changes: -ATEZOLIZUMAB 840 MG in Sodium Chloride 0.9% 250 ML 250 ML IVPB SCH
[2020-07-10 09:41] VITALS: BP 129/62; TEMP 98
== END 2020-07-10 11:35 | disposition home or self-care (01) ==
LOC: ONC/OP 09:34
PROVIDERS: ATTEND Internal Medicine Medical Oncology
DX: Z51.11 Encounter for antineoplastic chemotherapy (principal); C50.911 Malignant neoplasm of unspecified site of right female breast
CPT/HCPCS: 36415; 80053; 82248; 83615; 84100; 84550; 96375; 96413; J2405

== ENCOUNTER 2020-07-17 09:20 | Day surgery (SDC) | payer MEDICARE ==
[~2020-07-17 09:20] MED LIST changes: +ATEZOLIZUMAB 840 MG in Sodium Chloride 0.9% 250 ML 250 ML IV SCH
[2020-07-17] MEDS ORDERED: Sodium Chloride 0.9% 20 ML ONE (09:43)
[2020-07-17 12:37] VITALS: BP 127/59; TEMP 98.7
== END 2020-07-17 12:38 | disposition home or self-care (01) ==
LOC: ONC/OP 09:20
PROVIDERS: ATTEND Internal Medicine Medical Oncology
DX: Z51.11 Encounter for antineoplastic chemotherapy (principal); C50.911 Malignant neoplasm of unspecified site of right female breast; Z17.1 Estrogen receptor negative status [ER-]
CPT/HCPCS: 36415; 80053; 82248; 83615; 84100; 84550; 96413; 96417; J2405

== ENCOUNTER 2020-08-11 11:10 | Day surgery (SDC) | payer MEDICARE | END 2020-08-11 14:50 | disposition home or self-care (01) | LOC: ONC/OP 11:10 | PROVIDERS: ATTEND Internal Medicine Medical Oncology | DX: Z51.12 Encounter for antineoplastic immunotherapy (principal); C50.911 Malignant neoplasm of unspecified site of right female breast; Z17.1 Estrogen receptor negative status [ER-] | CPT/HCPCS: 80053; 82248; 83615; 84100; 84550; 96375; 96413; 96417; J2405 ==

== ENCOUNTER 2020-08-17 10:54 | Day surgery (SDC) | payer MEDICARE ==
[~2020-08-17 10:54] MED LIST changes: -ATEZOLIZUMAB 840 MG in Sodium Chloride 0.9% 250 ML 250 ML IV SCH
[2020-08-17 11:07] VITALS: BP 140/62; TEMP 98.2
== END 2020-08-17 13:46 | disposition home or self-care (01) ==
LOC: ONC/OP 10:54
PROVIDERS: ATTEND Internal Medicine Medical Oncology
DX: Z51.11 Encounter for antineoplastic chemotherapy (principal); C50.911 Malignant neoplasm of unspecified site of right female breast
CPT/HCPCS: 80053; 82248; 83615; 84100; 84550; 96375; 96413; J2405

== ENCOUNTER 2020-08-31 11:39 | Day surgery (SDC) | payer MEDICARE ==
[~2020-08-31 11:39] MED LIST changes: +ATEZOLIZUMAB 840 MG in Sodium Chloride 0.9% 250 ML 250 ML IV SCH
[2020-08-31 11:53] VITALS: BP 156/67; TEMP 97.6
== END 2020-08-31 14:24 | disposition home or self-care (01) ==
LOC: ONC/OP 11:39
PROVIDERS: ATTEND Internal Medicine Medical Oncology
DX: Z51.12 Encounter for antineoplastic immunotherapy (principal); C50.911 Malignant neoplasm of unspecified site of right female breast
CPT/HCPCS: 80053; 82248; 83615; 84100; 84550; 96375; 96413; 96417; J2405

== ENCOUNTER 2020-09-28 12:24 | Day surgery (SDC) | payer MEDICARE ==
[2020-09-28] MEDS ORDERED: ADMIXTURE FEE IVPB SCH (12:45)
[2020-09-28] MEDS ORDERED: ATEZOLIZUMAB 840 MG in Sodium Chloride 0.9% 250 ML 250 ML IV SCH (12:45)
[2020-09-28] MEDS ORDERED: PACLITAXEL PROTEIN BOUND IVPB SCH (12:45)
[2020-09-28] MEDS ORDERED: Ondansetron 2MG/ML MDV 10 MG in Sodium Chloride 0.9% 50 ML IVPB SCH (12:45)
[2020-09-28] MEDS ORDERED: Sodium Chloride 0.9% 20 ML ONE (13:12)
[2020-09-28 16:21] VITALS: BP 140/64; TEMP 97.7
== END 2020-09-28 16:22 | disposition home or self-care (01) ==
LOC: ONC/OP 12:24
PROVIDERS: ATTEND Internal Medicine Medical Oncology
DX: Z51.12 Encounter for antineoplastic immunotherapy (principal); C50.911 Malignant neoplasm of unspecified site of right female breast
CPT/HCPCS: 80053; 82248; 83615; 84100; 84436; 84443; 84550; 96375; 96413; 96417; J2405

== ENCOUNTER 2020-10-26 09:27 | Outpatient (CLI) | payer MEDICARE | END 2020-10-26 09:28 | disposition home or self-care (01) | LOC: PET 09:27 | PROVIDERS: ATTEND Internal Medicine Medical Oncology | DX: C50.919 Malignant neoplasm of unspecified site of unspecified female breast (principal); C79.51 Secondary malignant neoplasm of bone | CPT/HCPCS: 78815; A9552 ==

== ENCOUNTER 2020-12-19 12:58 | Day surgery (SDC) | payer MEDICARE ==
[~2020-12-19 12:58] MED LIST changes: -ADMIXTURE FEE CHEMO IVPB SCH; +ADMIXTURE FEE IVPB SCH
== END 2020-12-19 15:50 | disposition home or self-care (01) ==
LOC: ONC/OP 12:58
PROVIDERS: ATTEND Internal Medicine Medical Oncology
DX: Z51.12 Encounter for antineoplastic immunotherapy (principal); C50.911 Malignant neoplasm of unspecified site of right female breast; Z17.1 Estrogen receptor negative status [ER-]
CPT/HCPCS: 96375; 96413; 96417; J2405

== ENCOUNTER 2020-12-26 13:41 | Day surgery (SDC) | payer MEDICARE ==
[~2020-12-26 13:41] MED LIST changes: -ATEZOLIZUMAB 840 MG in Sodium Chloride 0.9% 250 ML 250 ML IV SCH
[2020-12-26] MEDS ORDERED: Sodium Chloride 0.9% 20 ML ONE (13:56)
[2020-12-26 14:34] VITALS: BP 119/56; TEMP 97.7
== END 2020-12-26 15:03 | disposition home or self-care (01) ==
LOC: ONC/OP 13:41
PROVIDERS: ATTEND Internal Medicine Medical Oncology
DX: Z51.11 Encounter for antineoplastic chemotherapy (principal); C50.911 Malignant neoplasm of unspecified site of right female breast
CPT/HCPCS: 36415; 80053; 82248; 83615; 84100; 84550; 96375; 96413; J2405

== ENCOUNTER 2021-01-18 14:18 | Day surgery (SDC) | payer MEDICARE ==
[~2021-01-18 14:18] MED LIST changes: +ADMIXTURE FEE CHEMO IVPB SCH; -ADMIXTURE FEE IVPB SCH; +ATEZOLIZUMAB 840 MG in Sodium Chloride 0.9% 250 ML 250 ML IV SCH
[2021-01-18] MEDS ORDERED: Sodium Chloride 0.9% 20 ML ONE (14:43)
[2021-01-18 16:21] VITALS: BP 140/60; TEMP 97.9
== END 2021-01-18 16:34 | disposition home or self-care (01) ==
LOC: ONC/OP 14:18
PROVIDERS: ATTEND Internal Medicine Medical Oncology
DX: Z51.12 Encounter for antineoplastic immunotherapy (principal); C50.911 Malignant neoplasm of unspecified site of right female breast; Z17.1 Estrogen receptor negative status [ER-]
CPT/HCPCS: 96375; 96413; 96417; J2405

== ENCOUNTER 2021-03-02 09:39 | Outpatient (CLI) | payer MEDICARE | END 2021-03-02 09:40 | disposition home or self-care (01) | LOC: PET 09:39 | PROVIDERS: ATTEND Internal Medicine Medical Oncology | DX: C50.911 Malignant neoplasm of unspecified site of right female breast (principal); C79.51 Secondary malignant neoplasm of bone | CPT/HCPCS: 78815; A9552 ==